=== PATIENT | female | born 1995 | race Caucasian/White ===

== ENCOUNTER 2017-07-03 19:48 | Emergency (ER) | payer SELFPAY ==
[~2017-07-03] VITALS: Ht 165.1 cm; Wt 82.6 kg
[2017-07-03 20:26] VITALS: BP 121/82
[2017-07-03] MEDS ORDERED: NAPROXEN 250 MG TABLET PO ONE (21:00)
[2017-07-03] MEDS ORDERED: NAPROXEN 250 MG TABLET ONE (21:03)
== END 2017-07-03 21:41 | disposition home or self-care (01) ==
LOC: ER 19:48
DX: S63.502A Unspecified sprain of left wrist, initial encounter (principal); J45.909 Unspecified asthma, uncomplicated; D64.9 Anemia, unspecified; X58.XXXA Exposure to other specified factors, initial encounter; Y93.89 Activity, other specified; Y92.89 Other specified places as the place of occurrence of the external cause; Y99.9 Unspecified external cause status
CPT/HCPCS: 29125; 73110; 99284; A4606; Z7610